=== PATIENT | female | born 1985 | race Caucasian/White ===

== ENCOUNTER 2017-04-24 14:39 | Emergency (ER) | payer OTHER ==
[2017-04-24 14:44] VITALS: BP 132/86; PULSE 68; TEMP 98.1; BMI 23.6
[2017-04-24] MEDS ORDERED: ERYTHROMYCIN 0.5% OPHTHALMIC OINTMENT 3.5 GM TUBE OS ONE (14:58)
[2017-04-24] MEDS ORDERED: ERYTHROMYCIN 0.5% OPHTHALMIC OINTMENT 3.5 GM TUBE ONE (14:59)
--- NOTE | 2017-04-24 15:28 | PDOC ---
History of Present Illness - General Chief Complaint: Eye Problem Stated Complaint: OBJECT IN EYE Time Seen by Provider: 04/24/17 14:45 - History of Present Illness Initial Comments: 04/24/17 15:21 CHIEF COMPLAINT: HISTORY OF PRESENT ILLNESS: 31 yo F presents to [facility] with "something in my eye." Patient reports that she was in the car with the window down when something flew into her eye causing her a lot of pain. She states she tried to irrigate the eye at home with no relief. She does not wear contacts. PAST MEDICAL HISTORY: Denies past medical history FAMILY HISTORY: Denies SOCIAL HISTORY: Denies tobacco, alcohol, illicit drug use. SURGICAL HISTORY: Denies ALLERGIES: No known drug allergies REVIEW OF SYSTEMS General/Constitutional: Denies fever or chills. Denies weakness, weight change. HEENT: "There's something in my eye." PHYSICAL EXAM General Appearance: Well-appearing, appropriately dressed. No apparent distress. HEENT: Tearing left eye. Pinpoint sized foreign body to upper eyelid. EOMI, PERRLA, normal ENT inspection, normal voice, TMs normal, pharynx normal. No conjunctival pallor. No photophobia, scleral icterus. Respiratory/Chest: Lungs CTAB. Cardiovascular: RRR. S1, S2. Musculoskeletal/Extremities: Normal inspection. FROM of all extremities, normal capillary refill. No tenderness to extremities, pedal edema, swelling, erythema or deformity. Integumentary: Appropriate color, dry, warm. No cyanosis, erythema, jaundice or rash Neurologic: gray tender II-XII intact. Fully oriented, alert. Appropriate mood/affect. Motor strength 5/5. No appreciable EOM palsy, facial droop or sensory deficit. Past History - Past Medical History Allergies/Adverse Reactions: Allergies Allergy/AdvReac Type Severity Reaction Status Date / Time No Known Allergies Allergy Verified 04/24/17 14:44 Home Medications: Ambulatory Orders NK [No Known Home Medication] 04/24/17 Other medical history: denies - Suicide/Smoking/Psychosocial Hx Smoking History: Never smoked Information on smoking cessation initiated: No Hx Alcohol Use: No Drug/Substance Use Hx: No Substance Use Type: None *Physical Exam - Vital Signs Last Vital Signs Temp Pulse Resp BP Pulse Ox 98.1 F 68 18 132/86 100 04/24/17 14:42 04/24/17 14:42 04/24/17 14:42 04/24/17 14:42 04/24/17 14:42 ED Treatment Course - Medications Given in the ED: ED Medications Discontinued Medications Generic Name Dose Route Start Last Admin Trade Name Denisha PRN Reason Stop Dose Admin Erythromycin 1 applic 04/24/17 14:58 04/24/17 15:15 Erythromycin 0.5% Eye Ointment OS 04/24/17 14:59 1 applic ONCE ONE Administration Medical Decision Making - Medical Decision Making 04/24/17 15:26 31 yo F presents to [facility] with "something in my eye." -Fluoresecin stain, no corneal abrasion. -Eye irrigated, unable to remove foreign object. Erythromycin ointment applied. Removed foreign object using cotton swab. Patient expressed relief immediatley. *DC/Admit/Observation/Transfer Diagnosis at time of Disposition: Foreign body in eye Qualifiers: Encounter type: initial encounter Laterality: left Qualified Code(s): T15.92XA - Foreign body on external eye, part unspecified, left eye, initial encounter - Discharge Dispostion Disposition: HOME Condition at time of disposition: Stable Admit: No - Referrals Referrals: Jose Valerio MD [Staff Physician] - - Patient Instructions Printed Discharge Instructions: How to Get a Foreign Body Out of Your Eye, DI for Foreign Body in the Eye
== END 2017-04-24 15:32 | disposition home or self-care (01) ==
LOC: JERFT 14:39
DX: T15.92XA Foreign body on external eye, part unspecified, left eye, initial encounter (principal); W20.8XXA Other cause of strike by thrown, projected or falling object, initial encounter; Y93.89 Activity, other specified; Y92.89 Other specified places as the place of occurrence of the external cause
CPT/HCPCS: 99281-25

== ENCOUNTER 2021-09-28 01:02 | Emergency (ER) | payer OTHER ==
[2021-09-28 01:11] VITALS: BP 138/84; PULSE 63; TEMP 98.1; BMI 29.9
== END 2021-09-28 01:22 | disposition home or self-care (01) ==
LOC: FER 01:02
DX: M79.652 Pain in left thigh (principal)
CPT/HCPCS: 99281-25